=== PATIENT | female | born 1990 | race Hispanic/Latino ===

== ENCOUNTER 2016-06-10 19:38 | Emergency (ER) | payer OTHER ==
[~2016-06-10 19:38] MED LIST: IBUPROFEN800 M1 PO; MOTRIN600 MG PO; PERCOCET 5-3251 EACH PO
--- NOTE | 2016-06-10 20:42 | ED SKIN/ALLERGY COMPLAINT ---
History of Present Illness General Chief Complaint: General Adult Stated Complaint: WOUND OPEN, Source: patient Exam Limitations: no limitations Vital Signs & Intake/Output Vital Signs & Intake/Output Vital Signs Date Time Temp Pulse Resp B/P Pulse O2 O2 Flow FiO2 Ox Delivery Rate 06/10 2123 98.2 80 18 120/75 96 06/10 1943 98.6 97 16 115/74 98 Room Air Allergies Coded Allergies: NO KNOWN ALLERGIES (05/08/16) Reconcile Medications Ibuprofen 800 MG TABLET 800 MG PO Q6P PRN UTERINE CRAMPING Oxycodone HCl/Acetaminophen (Percocet 5-325 MG Tablet) 5 MG-325 MG TABLET 1 TAB PO Q4P PRN PAIN SCALE 4-6 (MODERATE) Triage Note: TRIAGE; PT TO ED C/O SCAR OPENING AND BLEEDING WITH PAIN X2 DAYS. PT REPORTS SHE HAD A ON 05/12, AND HAD KEIRY REMOVED OVER 2 WEEKS AGO, HAD HEAVY LIFTING RECENTLY OTHER THAN HER BABY, AND 2 DAYS AGO STARTED WITH THE PAIN. PT ALSO STATES SHE NOTICED HER URINE HAS A SMELL TO IT RECENTLY WELL. Triage Nurses Notes Reviewed? yes Onset: Abrupt Duration: constant Timing: single episode today Severity: moderate Severity Numbers: 5 : No Patient currently breastfeeds: Yes HPI: Patient is a 25-year-old female who is status post May of a performed by CALENDER TENDER Dr. Marquez in which patient states that approximately 2 weeks later she had her keiry removed in with Steri-Strips of then applied. Patient states that in last 24 hours she was picking up her child in which she noticed mild pain to the incision site and is examined incenses site and noticed a minimal wound dehiscence to the right lateral aspect of the incision. No active discharge is noted. Patient is able tolerate by mouth denies any fever or chills denies any redness or swelling around the region. Patient also is complaining of a 2 week history of dysuria intermittent denies any hematuria or frequency changes. (JUDY MITCHELL) Past History Travel History Traveled to [place] past 21 day No Medical History Any Pertinent Medical History? none Neurological: NONE EENT: NONE Cardiovascular: NONE Respiratory: NONE Gastrointestinal: NONE Hepatic: NONE Renal: NONE Musculoskeletal: NONE Psychiatric: NONE Endocrine: NONE Blood Disorders: NONE Cancer(s): NONE DIRECTOR OF RESEARCH AND DEVELOPMENT/Reproductive: NONE Tetanus Vaccine: Surgical History Surgical History: non-contributory Psychosocial History What is your primary language Spanish Tobacco Use: Never used Family History Hx Contributory? No (JUDY MITCHELL) Review of Systems Review of Systems Constitutional: Reports: no symptoms. EENTM: Reports: no symptoms. Respiratory: Reports: no symptoms. Cardiovascular: Reports: no symptoms. GI: Reports: see HPI. Genitourinary: Reports: no symptoms. Musculoskeletal: Reports: no symptoms. Skin: Reports: see HPI. Neurological/Psychological: Reports: no symptoms. Hematologic/Endocrine: Reports: no symptoms. Immunologic/Allergic: Reports: no symptoms. All Other Systems: Reviewed and Negative (JUDY MITCHELL) Physical Exam Physical Exam General Appearance: no apparent distress, alert Skin: normal color, warm/dry Comments: Well-developed well-nourished person in no acute distress HEENT: Normal EENT exam Neck: Supple, no lymphadenopathy, normal range of motion without pain or tenderness Back: Nontender, no CVA tenderness. Full range of motion Cardiovascular: Regular rate and rhythms no murmurs rubs or gallops, normal JVP Respiratory: Chest nontender. No respiratory distress.breath sounds clear to auscultation bilaterally Abdomen: Soft, nontender nondistended, no appreciable organomegaly. Normal bowel sounds. No ascites Extremity: No edema, no calf tenderness to palpation, normal and equal pulses. Neuro: Alert oriented x3, motor sensory normal Skin: No appreciable rash on exposed skin, skin is warm and dry. Psych: Mood and affect is normal, memory and judgment is normal. Diagram Body: 1) Noted incisional scar with a right lateral 3 mm dehiscence with no active bleeding no active discharge no surrounding erythema swelling or warmth Lateral edges noted Steri-Strips in place No right lower quadrant pain. No peritoneal signs no rebound tenderness (JUDY MITCHELL) Progress Differential Diagnosis: abscess/cellulitis, allergic reaction, anaphylaxis, angioedema, contact dermatitis, urticaria, INTRA-ABDOMINAL ABSCESS, WOUND DEHISCENCE, CELLULITIS Plan of Care: Orders Procedure Date/time Status Add-on Test (ER Only) 06/10 2041 Active CULTURE,URINE 06/10 1958 Active URINE 06/10 1957 Complete URINALYSIS 06/10 1957 Complete Laboratory Tests 06/10/161958: Urine Color YEL, Urine Clarity CLEAR, Urine pH 6.0, Ur Specific [place] 1.025, Urine Protein NEG, Urine Ketones NEG, Urine Nitrite NEG, Urine Bilirubin NEG, Urine Urobilinogen 1.0, Ur Leukocyte Esterase MOD H, Ur Microscopic SEDIMENT EXAMINED, Urine RBC 3-5, Urine WBC 5-10 H, Ur Epithelial Cells MANY H, Urine Mucus MANY H, Urine Hemoglobin TRACE-INTACT, Urine Glucose NEG, Urine Test NEGATIVE Microbiology 06/10 1958 URINE ROUT: Urine Culture - RECD Patient currently shows no signs of infected wound, patient has minimal wound dehiscence Site was irrigated with peroxide and water and bandaged and tape were applied. Patient tolerated well. Patient will be treated for concerns of symptomatic urinary tract symptoms and was culture of urine currently is pending (JUDY MITCHELL) Departure Departure Disposition: HOME OR SELF CARE Condition: Stable Clinical Impression Primary Impression: Wound dehiscence Secondary Impressions: UTI (urinary tract infection) Referrals: RAZIA RAMOS MD (PCP/Family) Additional Instructions: As discussed BEGIN to change the bandages provided to YOU IN the emergency once A day and IF YOU NOTE signs of infection redness, pain, swelling, discharge return to emergency room. Follow-up with YOUR CALENDER TENDER appointment tomorrow for recheck of symptoms. Begin the prescription of ciprofloxacin as directed for your urinary tract infection. Begin [id number] IBUPROFEN for pain and inflammation. avoid strenuous activity as this may worsen YOUR symptoms Departure Forms: Customer Survey General Discharge Information (JUDY MITCHELL) PA/ASSISTANT OPERATOR Co-Sign Statement Statement: ED Attending supervision documentation- [] I saw and evaluated the patient. I have also reviewed all the pertinent lab results and diagnostic results. I agree with the findings and the plan of care as documented in the PA's/ASSISTANT OPERATOR's documentation. [X] I have reviewed the ED Record and agree with the PA's/ASSISTANT OPERATOR's documentation. [] Additions or exceptions (if any) to the PAs/ASSISTANT OPERATOR's note and plan are summarized below: [] (LUCERO SCHWARTZ,DONNA Morales)
[2016-06-10 21:24] VITALS: BP 120/75
== END 2016-06-10 21:28 ==
LOC: ERH 19:38
DX: T81.30XA Disruption of wound, unspecified, initial encounter (principal); N39.0 Urinary tract infection, site not specified
CPT/HCPCS: 81001; 81025; 87086